=== PATIENT | male | born 1980 | race African-American/Black ===

== ENCOUNTER 2020-04-07 10:03 | Inpatient (IN) | payer OTHER ==
--- NOTE | 2020-04-07 10:36 | BHS.RME ---
Substance Use & Tx History - Substance Use History Alcohol Substance amount: 2-3 pints vodka or saulo Frequency of use: Daily Substance route: Oral Date of Last Use: 04/06/20 (started age 12) Nicotine Substance amount: 1/2 pack Frequency of use: Daily Substance route: Smoking Date of Last Use: 04/07/20 (started age 18) - Last Treatment Date of last treatment: 10 days ago at [facility] and relapsed immediately Treatment type: Substance Use Disorder (ODELL) Where was last treatment: Detox Physical/Psych/Mental Status - Behavior General Behavior: Increased activity (restlessness, agitation) Eye Contact: Normal - Cooperativeness Cooperativeness: Cooperative - Thinking Thought Processes: Tight, Logical, Goal Directed - Physical Health Problems Is patient presently having any pain?: No Does patient presently have any injuries (include location): No Does patient currently have a fever: No Is patient : No CIWA Nausea/Vomitin Muscle Tremors: 4-Moderate,w/Arms Extend Anxiety: 3 Agitation: 3 Paroxysmal Sweats: 4-Forehead w/Sweat Beads Orientation: 1-Uncertain about Date Tacttile Disturbances: 0-None Auditory Disturbances: 0-None Visual Disturbances: 1-Very Mild Sensitivity Headache: 0-None Present CIWA-Ar Total Score: 18
--- NOTE | 2020-04-07 10:52 | HP ---
CIWA Score Nausea/Vomitin Muscle Tremors: 4-Moderate,w/Arms Extend Anxiety: 3 Agitation: 3 Paroxysmal Sweats: 4-Forehead w/Sweat Beads Orientation: 1-Uncertain about Date Tacttile Disturbances: 0-None Auditory Disturbances: 0-None Visual Disturbances: 1-Very Mild Sensitivity Headache: 0-None Present CIWA-Ar Total Score: 18 - Admission Criteria OASAS Guidelines: Admission for Medically Managed Detox: Requires at least one of the followin. CIWA greater than 12 2. Seizures within the past 24 hours 3. Delirium tremens within the past 24 hours 4. Hallucinations within the past 24 hours 5. Acute intervention needed for co occurring medical disorder 6. Acute intervention needed for co occurring psychiatric disorder 7. Severe withdrawal that cannot be handled at a lower level of care (continued vomiting, continued diarrhea, abnormal vital signs) requiring intravenous medication and/or fluids 8. Admitting History and Physical - Admission Chief Complaint: Mr. Stringer is a 40 yo man who presents to [facility] requesting admission to detox for alcohol use disorder. History of Present Illness: Mr. Stringer is a 40 yo man who presents to [facility] requesting admission to detox for alcohol use disorder. This is his first visit to [facility]. He tried detox 10 days ago at [facility], discharged about 4 days ago, however he relapsed immediately. 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 Nicotine Substance amount: 1/2 pack Frequency of use: Daily Substance route: Smoking Date of Last Use: 04/07/20 (started age 18) Cocaine: powder, small amount, last used 2 days ago, first used age 18y Benzos: given in detox, none purchased on the streets - Last Treatment Date of last treatment: 10 days ago at [facility] and relapsed immediately Treatment type: Substance Use Disorder (ODELL) Where was last treatment: Detox History Source: Patient Limitations to Obtaining History: No Limitations Admission ROS [facility] Allergies/Adverse Reactions: Allergies Allergy/AdvReac Type Severity Reaction Status Date / Time No Known Allergies Allergy Verified 04/07/20 11:00 Exam Limitations: No Limitations - Ebola screening Have you traveled outside of the country in the last 21 days: No Have you been sick,other than usual withdrawal symptoms: No Do you have a fever: No - Review of Systems Constitutional: Changes in sleep (trouble falling and staying asleep), Other (gained about 5 lbs recently) EENT: reports: No Symptoms Reported Respiratory: reports: No Symptoms reported Cardiac: reports: No Symptoms Reported GI: reports: Nausea (5) Patient History - Smoking Cessation Smoking history: Current every day smoker Have you smoked in the past 12 months: Yes Aproximately how many cigarettes per day: 10 Hx Chewing Tobacco Use: No Initiated information on smoking cessation: Yes 'Breaking Loose' booklet given: 04/07/20 Admission Physical Exam [facility] - Vital Signs Vital Signs: 144/100, 90, 20, 97.9 UD: PATTI, BZO - Physical General Appearance: Yes: No Apparent Distress, Nourished, Appropriately Dressed HEENTM: Yes: EOMI, Hearing grossly Normal, Normocephalic, Normal Voice Respiratory: Yes: Lungs Clear, No Respiratory Distress, No Accessory Muscle Use Neck: Yes: Within Normal Limits, Supple Breast: Yes: Breast Exam Deferred Cardiology: Yes: Regular Rhythm, Regular Rate Abdominal: Yes: Normal Bowel Sounds, Non Tender, Flat, Soft Genitourinary: Yes: Other (deferred) Back: Yes: Normal Inspection Musculoskeletal: Yes: Gait Steady Extremities: Yes: Normal Inspection, Non-Tender Neurological: Yes: Alert, Normal Response Integumentary: Yes: Normal Color, Dry, Warm - Diagnostic (1) Alcohol abuse with withdrawal, uncomplicated Current Visit: Yes Status: Acute (2) Cocaine dependence Current Visit: Yes Status: Acute Qualifiers: Substance use status: uncomplicated Qualified Code(s): F14.20 - Cocaine dependence, uncomplicated (3) Nicotine dependence Current Visit: Yes Status: Acute Qualifiers: Nicotine product type: cigarettes Substance use status: uncomplicated Qualified Code(s): F17.210 - Nicotine dependence, cigarettes, uncomplicated (4) Homeless Current Visit: Yes Status: Acute Cleared for Admission S - Detox or Rehab [facility] Level of Care: Medically Managed Detox Regimen/Protocol: Librium Breathalyzer - Breathalyzer Breathalyzer: 0 Inpatient Rehab Admission - Rehab Decision to Admit Inpatient rehab admission?: No
[2020-04-07 10:57] VITALS: BMI 32.3
[2020-04-07] MEDS ORDERED: BISMUTH SUBSALICYLATE 262 MG/15 ML BTL PO PRN (11:00)
[2020-04-07] MEDS ORDERED: NICOTINE POLACRILEX 2 MG GUM BUC PRN (11:00)
[2020-04-07] MEDS ORDERED: ACETAMINOPHEN 325 MG TABLET (FP) PO PRN ×2 (11:00)
[2020-04-07] MEDS ORDERED: MAG HYDROX/AL HYDROX/SIMETH 30 ML UNIT-DOSE CUP PO PRN (11:00)
[2020-04-07] MEDS ORDERED: MAGNESIUM CITRATE 300 ML BOTTLE PO PRN (11:00)
[2020-04-07] MEDS ORDERED: MAGNESIUM HYDROX 2400MG/30ML ORAL SUSPENSION 30 ML CUP PO PRN (11:00)
[2020-04-07] MEDS ORDERED: MENTHOL/PHENOL 1 EACH UD MM PRN (11:00)
[2020-04-07] MEDS ORDERED: chlordiazePOXIDE HCL 25 MG CAPSULE PO PRN (11:00)
[2020-04-07] MEDS ORDERED: IBUPROFEN 400 MG TABLET (FP) PO PRN (11:00)
[2020-04-07] MEDS ORDERED: METHOCARBAMOL 500 MG TABLET PO PRN (11:00)
[2020-04-07] MEDS ORDERED: ONDANSETRON *ODT* 4 MG TABLET SL PRN (11:00)
[2020-04-07] MEDS: NICOTINE 14 MG/24 HOURS TOPICAL PATCH TD SCH (12:41)
[2020-04-07] MEDS: chlordiazePOXIDE HCL 25 MG CAPSULE PO SCH ×3 (12:41→22:32)
[2020-04-07 12:59] LABS: HEMATOCRIT 41.9 % (35.4-49); HEMOGLOBIN 14.2 GM/dL (11.7-16.9); MCH 32.6 pg (25.7-33.7); MCHC 33.8 g/dl (32.0-35.9); MEAN CELL VOLUME 96.3 fl (80-96); MEAN PLT VOLUME 10.1 fl (7.5-11.1); PLATELET COUNT 282 K/MM3 (134-434); RBC 4.35 M/mm3 (4.00-5.60); RDW 14.4 % (11.9-15.9); WHITE BLOOD COUNT 8.7 K/mm3 (4.0-10.0)
[2020-04-07 13:11] LABS: ALBUMIN 4.2 g/dl (3.4-5.0); BILIRUBIN,TOTAL 0.5 mg/dL (0.2-1); CALCIUM 9.5 mg/dL (8.5-10.1); CREATININE 1.2 mg/dL (0.55-1.3); POTASSIUM 4.6 mmol/L (3.5-5.1)
[2020-04-07] MEDS: hydrOXYzine PAMOATE 25 MG CAPSULE (FP) PO SCH ×3 (13:19→22:32)
--- NOTE | 2020-04-07 13:45 | EKG ---
Test Reason : Blood Pressure : / mmHG Vent. Rate : 076 BPM Atrial Rate : 076 BPM P-R Int : 150 ms QRS Dur : 094 ms QT Int : 400 ms P-R-T Axes : 050 -04 008 degrees QTc Int : 450 ms NORMAL SINUS RHYTHM MINIMAL VOLTAGE CRITERIA FOR LVH, MAY BE NORMAL VARIANT BORDERLINE ECG NO PREVIOUS ECGS AVAILABLE Confirmed by Fabrice Horne MD ([id number]) on 04/07/2020 1:44:53 PM Referred By: Confirmed By:Fabrice Horne MD
[2020-04-07] MEDS: MELATONIN 5 MG TABLETS PO SCH (22:32)
[2020-04-07] MEDS: THIAMINE HCL 100 MG TABLET (FP) PO SCH (22:32)
[2020-04-08] MEDS: hydrOXYzine PAMOATE 25 MG CAPSULE (FP) PO SCH ×5 (07:00→22:46)
[2020-04-08] MEDS: chlordiazePOXIDE HCL 25 MG CAPSULE PO SCH ×4 (07:00→22:46)
[2020-04-08] MEDS: PRENATAL VITAMINS W/ FOLIC ACID TABLET (FP) PO SCH (10:41)
[2020-04-08] MEDS: NICOTINE 14 MG/24 HOURS TOPICAL PATCH TD SCH (10:42)
--- NOTE | 2020-04-08 13:34 | PN ---
[facility] CIWA - CIWA Score Nausea/Vomitin-Mild Nausea/No Vomiting Muscle Tremors: 2 Anxiety: 2 Agitation: 2 Paroxysmal Sweats: 1-Minimal Palms Moist Orientation: 0-Oriented Tacttile Disturbances: 1-Very Mild Itch/Numbness Auditory Disturbances: 0-None Visual Disturbances: 0-None Headache: 2-Mild CIWA-Ar Total Score: 11 S Progress Note (SOAP) Subjective: alert,irritable,anxious,interrupted sleep,tremor,aching pain in the body and back Objective: 04/08/20 16:46 Vital Signs Temperature 96.9 F L 04/08/20 12:30 Pulse Rate 108 H 04/08/20 12:30 Respiratory Rate 20 04/08/20 12:30 Blood Pressure 125/92 04/08/20 12:30 O2 Sat by Pulse Oximetry (%) 98 04/08/20 12:30 04/08/20 16:47 Laboratory Last Values WBC 8.7 K/mm3 (4.0-10.0) 04/07/20 11:00 RBC 4.35 M/mm3 (4.00-5.60) 04/07/20 11:00 Hgb 14.2 GM/dL (11.7-16.9) 04/07/20 11:00 Hct 41.9 % (35.4-49) 04/07/20 11:00 MCV 96.3 fl (80-96) H 04/07/20 11:00 MCH 32.6 pg (25.7-33.7) 04/07/20 11:00 MCHC 33.8 g/dl (32.0-35.9) 04/07/20 11:00 RDW 14.4 % (11.9-15.9) 04/07/20 11:00 Plt Count 282 K/MM3 (134-434) 04/07/20 11:00 MPV 10.1 fl (7.5-11.1) 04/07/20 11:00 Sodium 139 mmol/L (136-145) 04/07/20 11:00 Potassium 4.6 mmol/L (3.5-5.1) 04/07/20 11:00 Chloride 105 mmol/L (98-107) 04/07/20 11:00 Carbon Dioxide 30 mmol/L (21-32) 04/07/20 11:00 Anion Gap 4 MMOL/L (8-16) L 04/07/20 11:00 BUN 15.0 mg/dL (7-18) 04/07/20 11:00 Creatinine 1.2 mg/dL (0.55-1.3) 04/07/20 11:00 Est GFR (CKD-EPI)AfAm 88.37 04/07/20 11:00 Est GFR (CKD-EPI)NonAf 76.25 04/07/20 11:00 Random Glucose 105 mg/dL (74-106) 04/07/20 11:00 Calcium 9.5 mg/dL (8.5-10.1) 04/07/20 11:00 Total Bilirubin 0.5 mg/dL (0.2-1) 04/07/20 11:00 AST 28 U/L (15-37) 04/07/20 11:00 ALT 23 U/L (13-61) 04/07/20 11:00 Alkaline Phosphatase 82 U/L (45-117) 04/07/20 11:00 Total Protein 8.0 g/dl (6.4-8.2) 04/07/20 11:00 Albumin 4.2 g/dl (3.4-5.0) 04/07/20 11:00 Syphilis Serology Non-reactive (NONREACTIVE) 04/07/20 11:00 COVID-19 (DEVIKA) Not detected (Not Detected) 04/07/20 11:00 Assessment: 04/08/20 16:47 withdrawal symptom Plan: continue detox librium regimen
[2020-04-08] MEDS: MELATONIN 5 MG TABLETS PO SCH (22:46)
[2020-04-08] MEDS: THIAMINE HCL 100 MG TABLET (FP) PO SCH (22:48)
[2020-04-09] MEDS: hydrOXYzine PAMOATE 25 MG CAPSULE (FP) PO SCH ×5 (05:22→22:08)
[2020-04-09] MEDS: chlordiazePOXIDE HCL 25 MG CAPSULE PO SCH ×4 (05:22→22:08)
--- NOTE | 2020-04-09 10:01 | PN ---
S CIWA - CIWA Score Nausea/Vomitin-No Nausea/No Vomiting Muscle Tremors: 1-None Visible, but [place] Anxiety: 1-Mildly Anxious Agitation: 1-Slight > Activity Paroxysmal Sweats: No Perspiration Orientation: 0-Oriented Tacttile Disturbances: 0-None Auditory Disturbances: 0-None Visual Disturbances: 0-None Headache: 0-None Present CIWA-Ar Total Score: 3 BHS Progress Note (SOAP) Subjective: Pt states he feels "dazed" and questions if it is related to a medication given to him prior to admission Objective: 04/09/20 09:56 PE GNL; WDWN, in no distress MS: nl Motor: moves limbs well Coord: nl Gait: steady Laboratory Tests 04/07/20 04/07/20 04/07/20 11:00 11:00 11:00 WBC 8.7 RBC 4.35 Hgb 14.2 Hct 41.9 MCV 96.3 H MCH 32.6 MCHC 33.8 RDW 14.4 Plt Count 282 MPV 10.1 Sodium 139 Potassium 4.6 Chloride 105 Carbon Dioxide 30 Anion Gap 4 L BUN 15.0 Creatinine 1.2 Est GFR (CKD-EPI)AfAm 88.37 Est GFR (CKD-EPI)NonAf 76.25 Random Glucose 105 Calcium 9.5 Total Bilirubin 0.5 AST 28 ALT 23 Alkaline Phosphatase 82 Total Protein 8.0 Albumin 4.2 Syphilis Serology Non-reactive COVID-19 (DEVIKA) 04/07/20 11:00 WBC RBC Hgb Hct MCV MCH MCHC RDW Plt Count MPV Sodium Potassium Chloride Carbon Dioxide Anion Gap BUN Creatinine Est GFR (CKD-EPI)AfAm Est GFR (CKD-EPI)NonAf Random Glucose Calcium Total Bilirubin AST ALT Alkaline Phosphatase Total Protein Albumin Syphilis Serology COVID-19 (DEVIKA) Not detected Home Medication List Medication Instructions Recorded Confirmed Type NK [No Known Home Medication] 04/07/20 04/07/20 History Active Medications Generic Name Dose Route Start Last Admin Trade Name Freq PRN Reason Stop Dose Admin Acetaminophen 650 mg 04/07/20 11:00 Tylenol - PO Q6H PRN PAIN LEVEL 4 - 6 Acetaminophen 650 mg 04/07/20 11:00 Tylenol - PO Q6H PRN FEVER Al Hydroxide/Mg Hydroxide 30 ml 04/07/20 11:00 Mylanta Oral Suspension - PO Q6H PRN DYSPEPSIA Bismuth Subsalicylate 30 ml 04/07/20 11:00 Pepto-Bismol Liquid - PO Q1H PRN DIARRHEA Chlordiazepoxide HCl 25 mg 04/09/20 05:00 04/09/20 05:22 Librium - PO 04/09/20 23:01 25 mg [id number] YEYO Administration Chlordiazepoxide HCl 25 mg 04/07/20 11:00 Librium - PO 04/09/20 23:59 Q4H PRN WITHDRAWAL(CONT SUBST) Chlordiazepoxide HCl 10 mg 04/10/20 05:00 Librium - PO 04/10/20 23:01 [id number] YEYO Chlordiazepoxide HCl 10 mg 04/11/20 05:00 Librium - PO 04/11/20 17:01 Q12H YEYO Chlordiazepoxide HCl 10 mg 04/10/20 00:00 Librium - PO 04/11/20 00:00 Q4H PRN WITHDRAWAL(CONT SUBST) Chlordiazepoxide HCl 10 mg 04/12/20 05:00 Librium - PO 04/12/20 05:01 ONCE@0500 ONE Eucalyptus/Menthol/Phenol/Sorbitol 1 each 04/07/20 11:00 Cepastat Lozenge - MM 04/13/20 11:00 Q4H PRN SORE THROAT Hydroxyzine Pamoate 25 mg 04/07/20 14:00 04/09/20 05:22 Vistaril - PO 04/13/20 11:00 25 mg Q4HWA YEYO Administration Ibuprofen 400 mg 04/07/20 11:00 Motrin - PO Q6H PRN PAIN LEVEL 1 - 3 Magnesium Citrate 300 ml 04/07/20 11:00 Citroma - PO Q48H PRN CONSTIPATION Magnesium Hydroxide 30 ml 04/07/20 11:00 Milk Of Magnesia - PO PRN PRN CONSTIPATION Melatonin 5 mg 04/07/20 22:00 04/08/20 22:46 Melatonin PO 5 mg HS YEYO Administration Methocarbamol 500 mg 04/07/20 11:00 Robaxin - PO 04/13/20 11:00 Q6H PRN MUSCLE SPASMS Nicotine 14 mg 04/07/20 11:15 04/08/20 10:42 Nicoderm Patch - TD Not Given DAILY [facility] Nicotine Polacrilex 2 mg 04/07/20 11:00 Nicorette Gum - BUC Q2H PRN NICOTINE REPLACEMENT RX Ondansetron HCl 4 mg 04/07/20 11:00 Zofran Odt - SL Q8H PRN Nausea/Vomiting Multivit/Folic Acid/Iron 1 tab 04/08/20 10:00 04/08/20 10:41 Vitamins (Sjr) - PO 1 tab DAILY YEYO Administration Thiamine HCl 100 mg 04/07/20 22:00 04/08/20 22:48 Vitamin B1 - PO 100 mg HS YEYO Administration Vital Signs Temperature 98.0 F 04/09/20 09:00 Pulse Rate 84 04/09/20 09:00 Respiratory Rate 18 04/09/20 09:00 Blood Pressure 127/81 04/09/20 09:00 O2 Sat by Pulse Oximetry (%) 99 04/09/20 06:44 Assessment: 04/09/20 09:55 Mr. Stringer is a 40 yo man who presented to [facility] requesting admission to detox for alcohol use disorder. This is his first visit to [facility]. He tried detox 10 days ago at [facility], discharged about 4 days ago, however he relapsed immediately. 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 Alcohol withdrawal Plan: 1. [facility] detox protocol, projected completion on 04/12 2. I have reviewed the patients paper chart and [facility] chart, no specifics about treatment prior to admission here, pt questioning what meds he had prior to this admission
[2020-04-09] MEDS: PRENATAL VITAMINS W/ FOLIC ACID TABLET (FP) PO SCH (10:06)
[2020-04-09] MEDS: NICOTINE 14 MG/24 HOURS TOPICAL PATCH TD SCH (10:07)
[2020-04-09] MEDS: THIAMINE HCL 100 MG TABLET (FP) PO SCH (22:08)
[2020-04-09] MEDS: MELATONIN 5 MG TABLETS PO SCH (22:08)
[2020-04-10] MEDS ORDERED: chlordiazePOXIDE HCL 10 MG CAPSULE PO PRN
[2020-04-10] MEDS: hydrOXYzine PAMOATE 25 MG CAPSULE (FP) PO SCH ×2 (05:43→10:42)
[2020-04-10] MEDS: chlordiazePOXIDE HCL 10 MG CAPSULE PO SCH ×2 (05:43→10:42)
[2020-04-10 09:50] VITALS: BP 124/83; PULSE 66; TEMP 97.3
[2020-04-10] MEDS: NICOTINE 14 MG/24 HOURS TOPICAL PATCH TD SCH (10:42)
[2020-04-10] MEDS: PRENATAL VITAMINS W/ FOLIC ACID TABLET (FP) PO SCH (10:42)
--- NOTE | 2020-04-10 11:34 | PN ---
S CIWA - CIWA Score Nausea/Vomitin-No Nausea/No Vomiting Muscle Tremors: None Anxiety: 2 Agitation: 1-Slight > Activity Paroxysmal Sweats: 3 Orientation: 0-Oriented Tacttile Disturbances: 0-None Auditory Disturbances: 0-None Visual Disturbances: 0-None Headache: 0-None Present CIWA-Ar Total Score: 6 BHS Progress Note (SOAP) Subjective: c/o anxiety, sweats, and headache. Objective: 04/10/20 11:31 Vital Signs 04/10/20 04/10/20 05:31 08:34 Temperature 97.9 F 97.3 F L Pulse Rate 84 66 Respiratory 18 18 Rate Blood Pressure 123/78 124/83 O2 Sat by Pulse 96 Oximetry (%) Laboratory Last Values WBC 8.7 K/mm3 (4.0-10.0) 04/07/20 11:00 RBC 4.35 M/mm3 (4.00-5.60) 04/07/20 11:00 Hgb 14.2 GM/dL (11.7-16.9) 04/07/20 11:00 Hct 41.9 % (35.4-49) 04/07/20 11:00 MCV 96.3 fl (80-96) H 04/07/20 11:00 MCH 32.6 pg (25.7-33.7) 04/07/20 11:00 MCHC 33.8 g/dl (32.0-35.9) 04/07/20 11:00 RDW 14.4 % (11.9-15.9) 04/07/20 11:00 Plt Count 282 K/MM3 (134-434) 04/07/20 11:00 MPV 10.1 fl (7.5-11.1) 04/07/20 11:00 Sodium 139 mmol/L (136-145) 04/07/20 11:00 Potassium 4.6 mmol/L (3.5-5.1) 04/07/20 11:00 Chloride 105 mmol/L (98-107) 04/07/20 11:00 Carbon Dioxide 30 mmol/L (21-32) 04/07/20 11:00 Anion Gap 4 MMOL/L (8-16) L 04/07/20 11:00 BUN 15.0 mg/dL (7-18) 04/07/20 11:00 Creatinine 1.2 mg/dL (0.55-1.3) 04/07/20 11:00 Est GFR (CKD-EPI)AfAm 88.37 04/07/20 11:00 Est GFR (CKD-EPI)NonAf 76.25 04/07/20 11:00 Random Glucose 105 mg/dL (74-106) 04/07/20 11:00 Calcium 9.5 mg/dL (8.5-10.1) 04/07/20 11:00 Total Bilirubin 0.5 mg/dL (0.2-1) 04/07/20 11:00 AST 28 U/L (15-37) 04/07/20 11:00 ALT 23 U/L (13-61) 04/07/20 11:00 Alkaline Phosphatase 82 U/L (45-117) 04/07/20 11:00 Total Protein 8.0 g/dl (6.4-8.2) 04/07/20 11:00 Albumin 4.2 g/dl (3.4-5.0) 04/07/20 11:00 Syphilis Serology Non-reactive (NONREACTIVE) 04/07/20 11:00 COVID-19 (DEVIKA) Not detected (Not Detected) 04/07/20 11:00 Labs noted. Assessment: 04/10/20 11:31 AOX3, in no acute respiratory distress. Full ROM, ambulating in the unit. Withdrawal symptoms. Plan: continue detox.
--- NOTE | 2020-04-10 13:58 | DS ---
[facility] Detox Discharge Summary Admission Date: 04/07/20 Discharge Date: 04/10/20 - History Present History: Alcohol Dependence Additional Comments: Pt is medically cleared and discharged today. Pt completed the detox protocol. pt is encouraged to follow-up with an outpatient CD program and also to follow- up with his pmd which he verbalized understanding. Pt is AOX3, in no acute respiratory distress, Full ROM, and ambulatory. Pertinent Past History: alcohol use disorder. - Physical Exam Results Vital Signs: Vital Signs Temperature 97.3 F L 04/10/20 08:34 Pulse Rate 66 04/10/20 08:34 Respiratory Rate 18 04/10/20 08:34 Blood Pressure 124/83 04/10/20 08:34 O2 Sat by Pulse Oximetry (%) 96 04/10/20 05:31 Vital Signs 04/10/20 08:34 Temperature 97.3 F L Pulse Rate 66 Respiratory 18 Rate Blood Pressure 124/83 Laboratory Last Values WBC 8.7 K/mm3 (4.0-10.0) 04/07/20 11:00 RBC 4.35 M/mm3 (4.00-5.60) 04/07/20 11:00 Hgb 14.2 GM/dL (11.7-16.9) 04/07/20 11:00 Hct 41.9 % (35.4-49) 04/07/20 11:00 MCV 96.3 fl (80-96) H 04/07/20 11:00 MCH 32.6 pg (25.7-33.7) 04/07/20 11:00 MCHC 33.8 g/dl (32.0-35.9) 04/07/20 11:00 RDW 14.4 % (11.9-15.9) 04/07/20 11:00 Plt Count 282 K/MM3 (134-434) 04/07/20 11:00 MPV 10.1 fl (7.5-11.1) 04/07/20 11:00 Sodium 139 mmol/L (136-145) 04/07/20 11:00 Potassium 4.6 mmol/L (3.5-5.1) 04/07/20 11:00 Chloride 105 mmol/L (98-107) 04/07/20 11:00 Carbon Dioxide 30 mmol/L (21-32) 04/07/20 11:00 Anion Gap 4 MMOL/L (8-16) L 04/07/20 11:00 BUN 15.0 mg/dL (7-18) 04/07/20 11:00 Creatinine 1.2 mg/dL (0.55-1.3) 04/07/20 11:00 Est GFR (CKD-EPI)AfAm 88.37 04/07/20 11:00 Est GFR (CKD-EPI)NonAf 76.25 04/07/20 11:00 Random Glucose 105 mg/dL (74-106) 04/07/20 11:00 Calcium 9.5 mg/dL (8.5-10.1) 04/07/20 11:00 Total Bilirubin 0.5 mg/dL (0.2-1) 04/07/20 11:00 AST 28 U/L (15-37) 04/07/20 11:00 ALT 23 U/L (13-61) 04/07/20 11:00 Alkaline Phosphatase 82 U/L (45-117) 04/07/20 11:00 Total Protein 8.0 g/dl (6.4-8.2) 04/07/20 11:00 Albumin 4.2 g/dl (3.4-5.0) 04/07/20 11:00 Syphilis Serology Non-reactive (NONREACTIVE) 04/07/20 11:00 COVID-19 (DEVIKA) Not detected (Not Detected) 04/07/20 11:00 Labs noted. Pertinent Admission Physical Exam Findings: withdrawal symptoms. - Treatment Hospital Course: Detox Protocol Followed, Detoxed Safely, Responded well, Discharged Condition Good - Medication Discharge Medications: Ambulatory Orders NK [No Known Home Medication] 04/07/20 - Diagnosis (1) Alcohol abuse with withdrawal, uncomplicated Status: Acute (2) Cocaine dependence Status: Chronic Qualifiers: Substance use status: uncomplicated Qualified Code(s): F14.20 - Cocaine dependence, uncomplicated (3) Nicotine dependence Status: Chronic Qualifiers: Nicotine product type: cigarettes Substance use status: uncomplicated Qualified Code(s): F17.210 - Nicotine dependence, cigarettes, uncomplicated - AMA Did Patient Leave Against Medical Advice: No
[2020-04-11] MEDS ORDERED: chlordiazePOXIDE HCL 10 MG CAPSULE PO SCH (05:00)
[2020-04-12] MEDS ORDERED: chlordiazePOXIDE HCL 10 MG CAPSULE PO ONE (05:00)
== END 2020-04-10 12:53 | disposition home or self-care (01) | DRG 774 ==
LOC: YASAS 10:03 → Y3N 11:04
PROVIDERS: ADMIT Allergy & Immunology; ATTEND Allergy & Immunology
PROC: HZ2ZZZZ Detoxification Services for Substance Abuse Treatment (ICD-10-PCS; principal; 2020-04-07)
DX: F10.230 Alcohol dependence with withdrawal, uncomplicated (principal); F14.20 Cocaine dependence, uncomplicated; F17.210 Nicotine dependence, cigarettes, uncomplicated; Z59.0 Homelessness
CPT/HCPCS: 36415; 80053; 85027; 86780; 93005; 93010; C9803; U0003